=== PATIENT | female | born 1965 | race African-American/Black ===

== ENCOUNTER 2020-03-08 13:20 | Emergency (ER) | payer SELFPAY ==
[~2020-03-08 13:20] MED LIST: Iopamidol 370 76% 100 ML VIAL ONE
[2020-03-08] MEDS ORDERED: methylPREDNISolone Acetate 40 mg/ml Vial ONE (13:36)
[2020-03-08 15:17] LABS: ALT (SGPT) 55 U/L (8-55); AST (SGOT) 44 U/L (5-34); Albumin 4.1 g/dL (3.5-5.0); Alkaline Phosphatase 85 U/L (40-110); Anion Gap 14 mmol/L (10-20); BUN (Urea Nitrogen) 19 mg/dL (9.8-20.1); Bilirubin, Total 0.5 mg/dL (0.2-1.2); Calc. Creatinine Clearance 0 mL/min (70-130); Carbon Dioxide 20 mmol/L (22-29); Chloride 111 mmol/L (98-107); Estimated GFR-MDRD 52; Globulin 2.7 g/dL (2.4-3.5); Glucose 95 mg/dL (70-105); Potassium 3.8 mmol/L (3.5-5.1); Protein, Total 6.8 g/dL (6.0-8.3); Sodium 141 mmol/L (136-145); White Blood Cell (WBC) Count 3.5 thou/uL (4.8-10.8)
[2020-03-08 15:19] LABS: #Eosinphils 0.1 thou/uL (0.0-0.7); #Lymphocytes 1.2 thou/uL (1.20-3.40); #Monocytes 0.4 thou/uL (0.11-0.59); #Neutrophils 1.8 thou/uL (1.40-6.50); %Basophils 0.5 % (0.0-1.0); %Lymphocytes 34.5 % (21.0-51.0); %Monocytes 9.9 % (0.0-10.0); Hemoglobin 10.2 g/dL (12.0-16.0); Mean Corpuscular HGB CONC 28.4 g/dL (32.0-36.0); Mean Corpuscular Hemoglobin 24.4 pg (27.0-31.0); Mean Corpuscular Volume 85.8 fL (78.0-98.0); Mean Platelet Volume 7.3 fL (7.4-10.4); Platelet Count 256 thou/uL (130-400); RBC Distribution Width 15.1 % (11.5-14.5); Red Blood Cell (RBC) Count 4.17 mill/uL (4.20-5.40)
--- NOTE | 2020-03-08 16:21 | CT ---
CT NECK SOFT TISSUES WITH CONTRAST: 03/08/20 HISTORY: 54-year-old female with swelling of face x2 to 3 days. Mild pain. COMPARISON: None. FINDINGS: On the most inferior image slices, there are significantly enlarged upper mediastinal lymph nodes on the right side, only partially imaged. The home agent radiograph demonstrates additional significant widening of the mediastinum. The bilateral parotid glands are symmetrically enlarged, and have diffusely heterogeneously mixed low attenuation and intermediate attenuation in patchy fashion. No evidence of sialolith or ductal ectas ia. Bilateral submandibular glands appear normal. Medialized, tortuous right distal common carotid artery and internal carotid artery take a retrophary ngeal course, distorting the right hypopharynx (posterior pharyngeal wall is displaced anteriorly). T he apparent asymmetrically slightly enlarged appearance of the right palatine tonsil could be due to this. The parapharyngeal, perivertebral, posterior cervical, and tower erector, spaces, are unremarkable. No e vidence of abscess. Bilateral maxillary and sphenoid sinuses are grossly clear. Bilateral tympanomast oid cavities are grossly clear. IMPRESSION: 1. Significant mediastinal lymphadenopathy, incompletely imaged. Strongly recommend CT of chest with contrast to evaluate for metastatic disease or lymphoma. 2. Sjogren's disease involving bilateral parotid glands. 1. POS: JIN
[2020-03-08] MEDS ORDERED: Ketorolac Tromethamine 30 MG/ML VIAL ONE (16:54)
[2020-03-08] MEDS ORDERED: Piperacillin/Tazobactam 3.375 GM VIAL ONE (17:04)
[2020-03-08] MEDS ORDERED: Sodium Chloride 0.9% 100 ML ONE (17:05)
--- NOTE | 2020-03-08 18:04 | CT ---
CT THORAX NONCONTRAST: 03/08/20 HISTORY: 54-year-old female with mediastinal lymphadenopathy, partially visualized on neck CT earlier today. Dr. Joel discussed the findings and recommendations by telephone with Dr. Christian Mcneal of the [facility] Department, at 4:57 p.m. on 03/08/20. COMPARISON: None. FINDINGS: There are numerous very large pathologic, mostly noncalcified mediastinal lymph nodes in multiple sub spaces, including pretracheal, right paratracheal, subcarinal, and prevascular, spaces, as well as AP window. Some of these are difficult to measure because it is difficult to separate the boundaries be tween adjacent lymph nodes, but one conglomeration of right paratracheal lymph nodes measures approxi mately 2.5 x 4 x 3.5 cm. There are also significantly enlarged bilateral hilar lymph nodes, right greater than left. There is a cluster of multiple small calcifications involving some of the right posterior hilar lymph nodes. T he right hilar lymphadenopathy/mass is contiguous with a broad band of infiltrate and atelectasis inv olving the right middle lobe, with severe narrowing and/or occlusion of many branches of the right mi ddle lobe bronchus. The left lung, right lower lobe, and right upper lobe, are relatively clear. No pleural effusion or c ardiomegaly. No adrenal nodule. IMPRESSION: 1. Moderately severe, diffuse mediastinal and bilateral hilar lymphadenopathy. 2. The right hilar lymphadenopathy is inseparable from right hilar/perihilar mass causing post o bstructive pneumonitis of the right middle lobe bronchus. 3. Differential diagnosis includes right lung cancer causing post obstructive pneumonitis and at electasis of right middle lobe, with severe bilateral hilar and mediastinal metastatic lymphadenopath y. Recommend pulmonology consultation for possible bronchoscopy aimed at right middle lobe bronchus. 4. The other possibilities for the mediastinal and hilar lymphadenopathy are lymphoma and sarcoi dosis, but those entities would not explain the findings in the right middle lobe and right perihilar region. Code ENDER JN R POS: MARTHA
[2020-03-08 21:45] LABS: MONO NEGATIVE CONTROL ZONE White (Negative) (White); MONO POSITIVE CONTROL Pink Line (Positive) (PINK/RED); Mononucleosis NEGATIVE (NEGATIVE)
== END 2020-03-08 18:55 | disposition short-term general hospital (02) ==
LOC: NAV ERS 13:20
DX: K11.20 Sialoadenitis, unspecified (principal); R59.0 Localized enlarged lymph nodes; R91.8 Other nonspecific abnormal finding of lung field; I10 Essential (primary) hypertension; E66.9 Obesity, unspecified
CPT/HCPCS: 70492; 71250; 80053; 82150; 85025; 86308; 96365; 96375; J1885; J2543; J2920; J3490; Q9967